=== PATIENT | male | born 1990 | race African-American/Black ===

== ENCOUNTER 2025-05-16 07:23 | Emergency (ER) | payer BC, MEDICAID ==
[~2025-05-16] VITALS: Ht 190.5 cm; Wt 90.7 kg
[2025-05-16] MEDS: IV NORMAL SALINE 1000 ML BAG IV ONE (07:44)
[2025-05-16 07:51] LABS: FLOW, VBG 0.00 L/min (0.00-30.00); FRACTIONATED INSPIRED OXYGEN-V 21.0 %; SITE, VBG VBG - N/A; VBG AaDO2 36.9 mmHg; VBG BASE EXCESS 4.0 mmol/L (-2.0-3.0); VBG HCO3 22.3 mmol/L (22.0-29.0); VBG MetHb 0.2 % (0.5-1.5); VBG O2HB 38.7 % (0-79.0); VBG PCO2 21.0 mmHg (38.0-54.0); VBG PH 7.644 (7.320-7.430); VBG PO2 < 40.5 mmHg (23.0-48.0); VBG TOTAL HEMOGLOBIN 16.6 G/dL (13.5-17.5)
[2025-05-16 08:00] LABS: PLATELET COUNT (AUTO) 296 K/uL (152-348); RED BLOOD CELL COUNT(AUTO) 4.88 MIL/uL (4.06-5.63); RED CELL DISTRIBUTION WIDTH 13.5 % (12.1-16.2); WHITE BLOOD COUNT (AUTO) 8.0 K/uL (3.6-10.2)
[2025-05-16 08:09] LABS: CREATININE 1.3 mg/dL (0.6-1.3); SODIUM SERUM 141 mmol/L (136-145); UREA NITROGEN, BLOOD 16 mg/dL (7-18)
[2025-05-16 08:15] LABS: ASPARTATE AMINOTRANSFERASE 29 U/L (15-37); TOTAL PROTEIN, SERUM 8.6 g/dL (6.4-8.2)
[2025-05-16] MEDS ORDERED: METOCLOPRAMIDE HCL 10 MG/2 ML VIAL ONE (08:26)
[2025-05-16] MEDS ORDERED: diphenhydrAMINE 50 MG/1 ML VIAL ONE (08:26)
[2025-05-16 08:33] LABS: LACTIC ACID 4.8 mmol/L (0.4-2.0)
[2025-05-16] MEDS: METOCLOPRAMIDE HCL 10 MG/2 ML VIAL IV ONE (08:34)
[2025-05-16] MEDS: diphenhydrAMINE 50 MG/1 ML VIAL IV ONE (08:34)
[2025-05-16] MEDS ORDERED: IOHEXOL 300MG/ML 100 ML INFUS..BTL ONE (09:57)
[2025-05-16 10:30] VITALS: BP 128/68
[2025-05-16] MEDS ORDERED: METO-295 PO (11:53)
[2025-05-16] MEDS ORDERED: POTASSIUM CHLORIDE 20 MEQ TAB.PRT.SR ONE (12:03)
[2025-05-16] MEDS: POTASSIUM CHLORIDE 20 MEQ TAB.PRT.SR PO ONE (12:05)
[2025-05-16 12:09] VITALS: BP 129/70; TEMP 97.8; O2SAT 96
== END 2025-05-16 12:10 | disposition home or self-care (01) ==
LOC: ER 07:23
DX: A41.9 Sepsis, unspecified organism (principal); R65.21 Severe sepsis with septic shock; G35 Multiple sclerosis; R06.02 Shortness of breath; R07.9 Chest pain, unspecified; R10.13 Epigastric pain; R94.31 Abnormal electrocardiogram [ECG] [EKG]; R11.2 Nausea with vomiting, unspecified; Z20.822 Contact with and (suspected) exposure to COVID-19
CPT/HCPCS: 99291; 71260; 96365; 96361; 96375; 71045; 87426; 80076; 80048; 83880; 85025; 84145; 85730; 87040 ×2; 84484 ×2; 36415; 74177; 93005; 83605 ×2; 36600; J0696 ×2; J1200; J2765; Q9967; J7040; A4606; A4663